=== PATIENT | female | born 1930 | race Caucasian/White ===

== ENCOUNTER 2017-01-29 20:18 | Emergency (ER) | payer MEDICARE, MEDICAID ==
--- NOTE | 2017-01-29 20:20 | ED Physician Chart ---
Chief Complaint/HPI - Patient Information Date Seen:: 01/29/17 Time Seen:: 20:20 Chief Complaint:: fall History of Present Illness:: 86-year-old female with dementia, [facility] with acute, moderate to severe, fall out of bed that happened apparently about 30 minutes prior to arrival. Patient suffered associated skin tear on the right forearm. Patient arrived in a c-collar but there is no known head or neck injury. Patient is severely demented and does not speak. History limited by patient's underlying severe dementia History provided by EMS Allergies:: Allergies Allergy/AdvReac Type Severity Reaction Status Date / Time No Known Allergies Allergy Verified 01/29/17 20:19 Historian:: EMS Review:: Nurse's Note Reviewed, EMS run form Reviewed Review of Systems - Review of Systems Other: Complete system review otherwise unremarkable except as noted in history of present illness. Past Medical History - Past Medical History Past Medical History: DM, PUD/GERD, Thyroid disorder, Dementia, Other ( contractions, Alzheimer's dementia, gallstones, diabetes mellitus, CK-MB, hypothyroidism, GERD, osteoporosis) Family History: None Social History: Non Smoker, No Alcohol, No Drug Use, Care Facility Surgical History: None Psychiatricy History: Dementia Medication: Reviewed Family Medical History - Family Member Mother History Unknown: Yes Ethnicity: Physical Exam - Physical Examination Other:: INITIAL VITAL SIGNS: Reviewed by me GENERAL: Patient is lying on gurney. Severely demented. HEAD: Head is normocephalic. No evidence of trauma. No scalp or facial swelling EYES: No scleral icterus bilaterally ENT: Oropharynx is clear of exudate and erythema NECK: Supple. No meningismus. No masses. No evidence of trauma. No cervical spine bony step-offs or crepitus to palpation RESPIRATORY: No tachypnea. Clear to auscultation bilaterally. CV: Regular rate and rhythm. No murmurs, rubs, or gallops ABDOMEN: Soft, non-distended. No masses BACK: No ecchymoses. No evidence of trauma EXTREMITIES: Small subcentimeter skin tear to her right forearm/elbow otherwise Normal to inspection and palpation. No deformity SKIN: Warm and dry. No obvious rash. No jaundice NEUROLOGIC: Face is symmetric. Withdraws to pain in all extremities Labs/Radiology/EKG Results - Radiology Results Results: CT head and CT cervical spine without contrast preliminary report per radiology NAD ED Septic Shock - . Is Septic Shock (SBP<90, OR Lactate>4 mmol\L) present?: No Reassessment (Disposition) - Reassessment Reassessment:: 86-year-old female with severe dementia sent here from nursing facility after apparent fall out of add. She will arrived in a c-collar that was placed by EMS. Patient doesn't speak and has severe dementia the patient had no signs of grimacing or showing any pain on palpation of her extremities and body. She did have a small skin tear of the right forearm/elbow that was already cared for prior to arrival. CT imaging of the head and neck showed no acute process. Patient cleared for discharge back to facility. Reassessment Condition:: Improved - Diagnosis Diagnosis:: Mechanical fall Acute skin tear to right forearm/elbow - Aftercare/Follow up Instructions Aftercare/Follow-Up Instructions:: Counseled pt regarding lab results/diagnosis & need follow up, Refer to Discharge Instructions - Patient Disposition Discharge/Transfer:: Home Time:: 21:37 Condition at Disposition:: Improved ED Discharge Plan - Patient Disposition Admit/Discharge/Transfer: PT DISCHARGED HOME Condition at Disposition: Improved Instructions: Fall Prevention and Home Safety, [id number]
--- NOTE | 2017-01-30 12:22 | Diagnostic Imaging Report ---
CT scan of the brain without intravenous contrast HISTORY: Headache, trauma Total DLP equals 632 CTDI equals 32.2 Axial sections were obtained to the base of the skull to the vertex. The exam demonstrates changes of severe generalized cerebral atrophy with marked enlargement of the ventricular system and marked enlargement of cerebral sulci and subarachnoid cisterns. Extensive hypodensity is noted throughout the supratentorial and periventricular white matter regions may be associated with chronic small vessel ischemic disease. Somewhat more pronounced encephalomalacia is noted in the right temporal region with volume loss. Changes may be associated with an old infarct. No acute intracerebral hemorrhage. No mass effect or shift of midline structures. No acute extra-axial masses or abnormal fluid collections. Atherosclerotic calcification seen in the region of the vertebral arteries at the base of the skull. IMPRESSION: 1. Severe generalized cerebral atrophy 2. Extensive supratentorial and periventricular white matter changes that may be associated with small vessel ischemic disease 3. More focal encephalomalacia within the right temporal area associated with volume loss. Changes may be related to an underlying old infarct. 4. No definite acute abnormalities
--- NOTE | 2017-01-30 12:24 | Diagnostic Imaging Report ---
CT scan cervical spine HISTORY: Pain, trauma Total DLP equals 198 CTDI equals 11.2 Axial sections were obtained to the cervical spine. Additional sagittal and coronal reformatted images are provided. There is generalized osteoporosis throughout the spine. Diffuse degenerative changes with spur formation noted about the endplates of all vertebrae. Narrowing of all interspaces. Mild retrolisthesis of C3 relative to C4. Spur formation results in mild extradural indentations on the anterior spinal canal at C5-6 and C6-7. There is compression involving the body of T3 and possibly T4. A dedicated CT scan of the thoracic spine would provide additional assessment. IMPRESSION: 1. Diffuse degenerative changes throughout the cervical spine 2. Compression involving the body of T3 and possibly T4. A dedicated CT scan of the thoracic spine would provide additional assessment.
== END 2017-01-30 00:50 | disposition home or self-care (01) ==
LOC: ER 20:18
DX: S51.011A Laceration without foreign body of right elbow, initial encounter (principal); E11.9 Type 2 diabetes mellitus without complications; K21.9 Gastro-esophageal reflux disease without esophagitis; E07.9 Disorder of thyroid, unspecified; W19.XXXA Unspecified fall, initial encounter; Y93.89 Activity, other specified; Y92.89 Other specified places as the place of occurrence of the external cause; Y99.8 Other external cause status
CPT/HCPCS: 70450-TC; 72125-TC; Z7502